=== PATIENT | male | born 1995 | race Caucasian/White ===

== ENCOUNTER 2016-08-14 22:01 | Emergency (ER) | payer OTHER ==
--- NOTE | ~2016-08-14 | CR72 ---
[facility] A Service of [facility] & [facility] RADIOLOGY TEXT RESULTS PATIENT: SEN HOLGUIN LOCATION: [facility] : [birth year] UNIT #: [id number] AGE: [address]: Bakari Gonzales MD SEX: M ORDER DR: [id number] [facility] [address] [place], [place] [address] [id number] E MR#: [id number] Acc #: [id number] NAME: SEN HOLGUIN : 1995 SEX: M STUDY DATE/TIME: 08/14/2016 21:54 UNIT: [facility] ROOM: STUDY DESCRIPTION: CR Chest Single View Portable Attending Physician: Bakari Gonzales M.D. Ordering Physician: Bakari Gonzales M.D. Primary Care Physician: Primary Care Physician No MEDICAL IMAGING REPORT This report is preliminary unless electronic signature is present EXAM Portable chest HISTORY Syncope. Patient hit floor. Also has cough. FINDINGS A portable view of the chest was obtained. The heart size and vascularity are normal and the lungs are clear and the bones are unremarkable. IMPRESSION No active disease. Dictated by... Mahesh Arroyo M.D. THIS IS AN ELECTRONICALLY VERIFIED REPORT Mahesh Arroyo M.D. at 08/15/2016 9:55 PM FEL/to TD: 08/15/2016 16:19 JOB #: [id number] MEDICAL IMAGING REPORT Page 1 of 1 COPY
--- NOTE | ~2016-08-14 | EKG ---
PATIENT: SEN HOLGUIN UNIT #: [id number] Ventricular Rate: 63 BPM Atrial Rate: 63 BPM P-R Interval: 160 ms QRS Duration: 100 ms Q-T Interval: 386 ms QTC Calculation(Bezet): 395 ms P [place]: 59 degrees Calculated R [place]: 80 degrees Calculated T [place]: 60 degrees Diagnosis Line: Normal sinus rhythm with sinus arrhythmia Diagnosis Line: Normal ECG Diagnosis Line: No previous ECGs available Diagnosis Line: Confirmed by MILLICENT DUNN MD ([id number]) on Diagnosis Line: 08/15/2016 3:53:05 PM INTERPRETING MD: WILMER
--- NOTE | ~2016-08-14 | CT71 ---
[facility] A Service of [facility] RADIOLOGY TEXT RESULTS PATIENT: SEN HOLGUIN LOCATION: [facility] : [birth year] UNIT #: [id number] AGE: [address]: Bakari Gonzales MD SEX: M ORDER DR: [id number] [address] [place], [place] [address] [id number] E MR#: [id number] Acc #: [id number] NAME: SEN HOLGUIN : 1995 SEX: M STUDY DATE/TIME: 08/14/2016 22:28 UNIT: [facility] ROOM: STUDY DESCRIPTION: CT Head Wo Contrast Attending Physician: Bakari Gonzales M.D. Ordering Physician: Bakari Gonzales M.D. Primary Care Physician: Primary Care Physician No MEDICAL IMAGING REPORT This report is preliminary unless electronic signature is present EXAM CT scan of the head without contrast. HISTORY Syncope with head trauma and headache and injury; this happened tonight. COMPARISON 09/20/2015 TECHNIQUE Axial noncontrast images were obtained from the skull base to the vertex. This CT exam was performed with one or more of the following radiation dose reduction techniques: Automatic exposure control, adjustment of mA and/or kV according to patient size, and iterative reconstruction. FINDINGS Ventricular size and configuration are normal. There is no evidence of acute infarct or hemorrhage. There are no extraaxial fluid collections. No mass lesion or mass effect is seen. There are no skull fractures. IMPRESSION Normal noncontrast head CT. Dictated by... Mahesh Arroyo M.D. THIS IS AN ELECTRONICALLY VERIFIED REPORT Mahesh Arroyo M.D. at 08/15/2016 9:55 PM FEL/psc [facility] A Service of [facility] RADIOLOGY TEXT RESULTS PATIENT: SEN HOLGUIN LOCATION: [facility] : [birth year] UNIT #: [id number] AGE: [address]: Bakari Gonzales MD SEX: M ORDER DR: TD: 08/15/2016 16:56 JOB #: [id number] MEDICAL IMAGING REPORT Page 1 of 1 COPY
--- NOTE | ~2016-08-14 | CT52 ---
[facility] A Service of [facility] RADIOLOGY TEXT RESULTS PATIENT: SEN HOLGUIN LOCATION: [facility] : [birth year] UNIT #: [id number] AGE: [address]: Bakari Gonzales MD SEX: M ORDER DR: [id number] [facility] [address] [place], [place] [address] [id number] E MR#: [id number] Acc #: [id number] NAME: SEN HOLGUIN : 1995 SEX: M STUDY DATE/TIME: 08/14/2016 22:35 UNIT: [facility] ROOM: STUDY DESCRIPTION: CT Cervical Spine Wo Cont Attending Physician: Bakari Gonzales M.D. Ordering Physician: Bakari Gonzales M.D. Primary Care Physician: Primary Care Physician No MEDICAL IMAGING REPORT This report is preliminary unless electronic signature is present EXAM CT scan of the cervical spine without contrast INDICATIONS Syncope with head trauma and neck pain. This happened today. FINDINGS This CT exam was performed with one or more of the following radiation dose reduction techniques: Automatic exposure control, adjustment of mA and/or kV according to patient size, and iterative reconstruction. Axial 2 mm images were obtained through the cervical spine and sagittal and coronal reconstructions were generated. The alignment is normal. There is no degenerative change, or fracture or subluxation. There is no soft tissue swelling. IMPRESSION Normal CT scan cervical spine without contrast. Dictated by... Mahesh Arroyo M.D. THIS IS AN ELECTRONICALLY VERIFIED REPORT Mahesh Arroyo M.D. at 08/15/2016 9:56 PM FEL/psc TD: 08/15/2016 17:23 JOB #: [id number] MEDICAL IMAGING REPORT Page 1 of 1 COPY
[2016-08-14 22:28] LABS: BASOPHIL# 0.1 X10e3 (0-0.3); EOSINOPHIL# 0.2 X10e3 (0-0.7); EOSINOPHIL% 3.6 % (0.0-7.0); HEMATOCRIT 44.5 % (38.0-50.0); HEMOGLOBIN 15.6 gm/dL (13.0-16.0); LYMPHOCYTE# 2.1 X10e3 (1.0-3.5); LYMPHOCYTE% 30.2 % (17.0-45.0); MEAN CELL VOLUME 83.7 FL (83-96); MEAN CORPUSCULAR HEMOGLOBIN 29.3 PG (28-34); MEAN PLATELET VOLUME 9.7 FL (6.5-11.5); MONOCYTE# 0.6 X10e3 (0-1.0); NEUTROPHIL% 57.2 % (40-75); PLATELET COUNT 206 X10e3 (140-420); RED BLOOD COUNT 5.31 X10e (3.90-5.60); RED CELL DISTRIBUTION WIDTH 12.6 % (11.0-15.5)
[2016-08-14 22:29] LABS: DIFF IND NO
[2016-08-14 22:53] LABS: CREATININE SERUM 0.8 mg/dL (0.6-1.4); GLOM FILT RATE Estimated 126.9 mL/min (>60); POTASSIUM 3.7 mmol/L (3.5-5.1)
== END 2016-08-14 23:35 | disposition home or self-care (01) ==
LOC: CFTX 22:01
PROVIDERS: Emergency Medicine
DX: S06.9X9A Unspecified intracranial injury with loss of consciousness of unspecified duration, initial encounter (principal); R55 Syncope and collapse; S16.1XXA Strain of muscle, fascia and tendon at neck level, initial encounter; G43.909 Migraine, unspecified, not intractable, without status migrainosus; Z98.890 Other specified postprocedural states; W01.198A Fall on same level from slipping, tripping and stumbling with subsequent striking against other object, initial encounter; Y92.9 Unspecified place or not applicable
CPT/HCPCS: 70450; 71010; 72125; 80048; 85025; 93005; 99284